=== PATIENT | male | born 1975 | race Caucasian/White ===

== ENCOUNTER 2016-12-16 17:58 | Emergency (ER) | payer SELFPAY ==
[~2016-12-16] VITALS: Ht 210.8 cm; Wt 93.0 kg
[2016-12-16 18:23] VITALS: BP 129/86
--- NOTE | 2016-12-16 22:30 | NUR ---
PATIENT LEFT WITHOUT BEING SEEN BY DR. ABRAHAM. NO FURTHER CARE PROVIDED FOR PATIENT.
== END 2016-12-16 22:30 | disposition left against medical advice (07) ==
LOC: MED 17:58
DX: R06.02 Shortness of breath (principal); Z53.21 Procedure and treatment not carried out due to patient leaving prior to being seen by health care provider
CPT/HCPCS: 71020; 99281